=== PATIENT | female | born 1990 | race African-American/Black ===

== ENCOUNTER 2022-01-06 10:45 | Emergency (ER) | payer BC, OTHER ==
[2022-01-06 10:52] VITALS: BP 147/93; PULSE 116; TEMP 98.6; BMI 33.2
[2022-01-06 12:27] LABS: BASO % 0.6 % (0-2.0); EOS % 0.7 % (0-4.5); HEMATOCRIT 39.3 % (32.4-45.2); HEMOGLOBIN 13.1 GM/dL (10.7-15.3); LYMPH % 43.7 % (8-40); MCH 30.8 pg (25.7-33.7); MCHC 33.3 g/dl (32.0-36.0); MEAN CELL VOLUME 92.3 fl (80-96); MEAN PLT VOLUME 7.5 fl (7.5-11.1); MONO % 6.1 % (3.8-10.2); NEUT % 48.9 % (42.8-82.8); PLATELET COUNT 310 10^3/uL (134-434); RBC 4.26 M/mm3 (3.60-5.2); RDW 13.2 % (11.6-15.6); VENOUS BASE EXCESS 0.6 mmol/L (-2-2); VENOUS O2 SATURATION 56.4 % (70-80); VENOUS PCO2 48.7 mmHg (38-52); VENOUS PH 7.358 (7.310-7.410); WHITE BLOOD COUNT 3.9 K/mm3 (4.0-10.0)
[2022-01-06 12:55] LABS: CHLORIDE 104 mmol/L (98-107); SODIUM 139 mmol/L (136-145)
[2022-01-06 12:57] LABS: CALCIUM 9.5 mg/dL (8.5-10.1)
[2022-01-06 12:58] LABS: ALBUMIN 3.9 g/dl (3.4-5.0); ANION GAP 5 MMOL/L (8-16); BLOOD UREA NITROGEN 7.9 mg/dL (7-18); CO2 29 mmol/L (21-32); MAGNESIUM 2.1 mg/dL (1.8-2.4)
[2022-01-06 13:01] LABS: CREATININE 0.8 mg/dL (0.55-1.3); SGOT/AST 18 U/L (15-37); SGPT/ALT 20 U/L (13-61)
[2022-01-06 13:02] LABS: BILIRUBIN,TOTAL 0.6 mg/dL (0.2-1); TOT PROT 7.6 g/dl (6.4-8.2)
[2022-01-06 13:04] LABS: ALK PHOS 58 U/L (45-117)
[2022-01-06 13:26] LABS: GLUCOSE,RANDOM 94 mg/dL (74-106)
== END 2022-01-06 14:38 | disposition home or self-care (01) ==
LOC: JER 10:45
DX: T14.91XA Suicide attempt, initial encounter (principal); F32.9 Major depressive disorder, single episode, unspecified
CPT/HCPCS: 36415; 80053; 80307; 82550; 82553; 82803; 83735; 84484; 85025; 93005; 93010; 99281-25; C9803; U0003; U0005